=== PATIENT | male | born 1960 | race African-American/Black ===

== ENCOUNTER 2021-12-06 03:22 | Emergency (ER) | payer MEDICARE, MEDICAID ==
[~2021-12-06] VITALS: Ht 180.3 cm; Wt 84.0 kg
[~2021-12-06 03:22] MED LIST: ASPI-1497 MT; COR3 MT; LOSA25TA3 MT
[2021-12-06 03:24] VITALS: BP 136/86
[2021-12-06] MEDS ORDERED: LIDOCAINE HCL/EPINEPHRINE 1%-EPI 1:100,000 20 ML VIAL INFIL ONE (04:15)
[2021-12-06] MEDS ORDERED: BACITRACIN ZINC OINT UDPKT TOP ONE (04:15)
[2021-12-06] MEDS ORDERED: TETANUS, DIPHTHERIA, PERTUSSIS VAC/PF 0.5ML (>10YR OLD) IM ONE (04:15)
[2021-12-06] MEDS ORDERED: LIDOCAINE HCL/EPINEPHRINE 1%-EPI 1:100,000 50 ML VIAL INFIL SCH (05:00)
[2021-12-06] MEDS ORDERED: HYDROCODONE/ACETAMINOPHEN 5/325MG TABLET PO ONE (06:00)
== END 2021-12-06 06:48 | disposition home or self-care (01) ==
LOC: ER 03:22
DX: S01.111A Laceration without foreign body of right eyelid and periocular area, initial encounter (principal); W18.39XA Other fall on same level, initial encounter; Y93.89 Activity, other specified; Y92.89 Other specified places as the place of occurrence of the external cause; Y99.8 Other external cause status; F10.129 Alcohol abuse with intoxication, unspecified; Y90.0 Blood alcohol level of less than 20 mg/100 ml; I10 Essential (primary) hypertension; I25.2 Old myocardial infarction
CPT/HCPCS: 12013; 90471; 90715; 93005; 99284; J3490

== ENCOUNTER 2022-09-19 16:29 | Emergency (ER) | payer MEDICARE, MEDICAID ==
[~2022-09-19] VITALS: Ht 175.3 cm; Wt 82.0 kg
[2022-09-19 16:31] VITALS: BP 140/90
== END 2022-09-19 21:19 | disposition left against medical advice (07) ==
LOC: ER 16:31
DX: Z53.21 Procedure and treatment not carried out due to patient leaving prior to being seen by health care provider (principal)